=== PATIENT | male | born 1940 | race Caucasian/White ===

== ENCOUNTER 2017-08-02 09:03 | Outpatient (CLI) | payer MEDICARE, BC | END 2017-08-02 23:59 | disposition home or self-care (01) | LOC: DIABETIC 09:03 | PROVIDERS: ATTEND Specialist | DX: E11.65 Type 2 diabetes mellitus with hyperglycemia (principal) | CPT/HCPCS: G0108 ==

== ENCOUNTER 2019-02-21 21:07 | Inpatient (IN) | payer MEDICARE, BC ==
[~2019-02-21] VITALS: Ht 172.7 cm; Wt 87.2 kg
[2019-02-21] MEDS ORDERED: heparin 10,000 units/1 ML INJ IV ONE (21:30)
[2019-02-21] MEDS ORDERED: heparin 25,000 UNIT/250ml bag 250 ML IV SCH (21:30)
[2019-02-21] MEDS ORDERED: heparin 10,000 units/1 ML INJ IV PRN (21:30)
[2019-02-21 21:48] LABS: BASOPHILS # (AUTO) 0.1 X10'3 (0-0.2); BASOPHILS % (AUTO) 0.9 % (0-1); EOSINOPHILS # (AUTO) 0.2 X10'3 (0-0.9); EOSINOPHILS % (AUTO) 1.9 % (0-6); HEMATOCRIT 39.5 % (42.0-52.0); HEMOGLOBIN 13.1 g/dl (14.0-17.9); LYMPHOCYTES # (AUTO) 1.1 X10'3 (1.1-4.8); LYMPHOCYTES % (AUTO) 12.8 % (21-51); MEAN CORPUSCULAR HEMOGLOBIN 30.8 PG (27.0-31.0); MEAN CORPUSCULAR HGB CONC 33.2 g/dL (33.0-36.5); MEAN CORPUSCULAR VOLUME 92.7 FL (78-98); MEAN PLATELET VOLUME 9.1 FL (7.4-10.4); MONOCYTES # (AUTO) 0.5 X10'3 (0-0.9); NEUTROPHILS # (AUTO) 6.5 X10'3 (1.8-7.7); NEUTROPHILS % (AUTO) 78.4 % (42-75); PLATELET COUNT 152 X10'3 (140-440); RED BLOOD COUNT 4.26 X10'6 (4.70-6.10); RED CELL DISTRIBUTION WIDTH 14.6 % (11.5-14.5); WHITE BLOOD COUNT 8.3 X10'3 (4.5-11.0)
[2019-02-21 21:57] LABS: PARTIAL THROMBOPLASTIN TIME 35 SECONDS (22-32)
[2019-02-21 22:01] LABS: ALANINE AMINOTRANSFERASE 34 U/L (12-78); ALBUMIN 3.7 G/DL (3.4-5.0); ALBUMIN/GLOBULIN RATIO 1.1 (1.1-1.5); ALKALINE PHOSPHATASE 41 IU/L (46-116); ANION GAP 10 (8-16); ASPARTATE AMINO TRANSFERASE 44 U/L (10-37); BILIRUBIN,TOTAL 0.3 MG/DL (0.1-1.0); BLOOD UREA NITROGEN 32 MG/DL (7-18); BUN/CREATININE RATIO 21.2 (5.4-32.0); CALCIUM 8.7 MG/DL (8.5-10.1); CHLORIDE 108 MMOL/L (99-107); CREATININE 1.51 MG/DL (0.60-1.10); GLUCOSE 139 MG/DL (70-104); POTASSIUM 4.6 MMOL/L (3.5-5.1); SODIUM 141 MMOL/L (135-145); eGFR 45 ML/MIN
[2019-02-21] MEDS ORDERED: iohexol 350MG/ML 100ml bottle IV ONE (22:12)
--- NOTE | 2019-02-21 23:20 | NUR ---
Per JESENIA Ortega, pt NPO now.
[2019-02-21 23:40] LABS: CLARITY,URINE CLEAR (Clear); COLOR,URINE YELLOW (Yellow); GLUCOSE, URINE NEGATIVE (Neg); KETONES,URINE NEGATIVE (Neg); LEUKOCYTE ESTERASE ,URINE NEGATIVE (Neg); NITRITES, URINE NEGATIVE (Neg); OCCULT BLOOD,URINE NEGATIVE (Neg); PROTEIN,URINE NEGATIVE (Neg)
[2019-02-21 23:43] LABS: UA COLLECTION TYPE VOIDED
[2019-02-22] VITALS (26 sets, daily range): BP systolic 118–175; BP diastolic 45–73
[2019-02-22] MEDS ORDERED: LIDOcaine 1% (10mg/ml)w/preservative injection 20ml MDV ONE (00:03)
[2019-02-22] MEDS ORDERED: fentaNYL/PF 50MCG/1 ML 2ML syringe ONE (00:03)
[2019-02-22] MEDS ORDERED: midazolam 2 mg/2 ml injection ONE (00:03)
[2019-02-22] MEDS ORDERED: iohexol 350 MG/ML 50ML vial IV ONE (00:03)
[2019-02-22] MEDS ORDERED: iohexol 350MG/ML 100ml bottle IV ONE ×3 (00:03→01:03)
[2019-02-22] MEDS ORDERED: diphenhydrAMINE 50 mg/ml inj ONE (00:15)
[2019-02-22] MEDS ORDERED: dextrose ORAL solution 15 GM/59 ML bottle PO PRN ×2 (00:25)
[2019-02-22] MEDS ORDERED: magnesium Cl slow-release 64mg tablet PO PRN (00:25)
[2019-02-22] MEDS ORDERED: MESSAGE TO PHARMACY PO ONE (00:25)
[2019-02-22] MEDS ORDERED: ondansetron/PF 4mg/2ml inj IV PRN (00:25)
[2019-02-22] MEDS ORDERED: glucagon, human recombinant 1mg kit SUBCUT PRN (00:25)
[2019-02-22] MEDS ORDERED: potassium Cl 20 mEq SR tablet PO PRN ×2 (00:25)
[2019-02-22] MEDS ORDERED: acetaminophen 325mg tablet PO PRN ×3 (00:25→02:20)
[2019-02-22] MEDS ORDERED: dextrose 50%-water 50ml dispensing syringe IV PRN ×2 (00:25)
[2019-02-22] MEDS ORDERED: Neutra Phos packet PO PRN (00:25)
[2019-02-22] MEDS ORDERED: tirofiban 5mg in NS 100mL 100 ML IV ONE ×2 (00:28→01:48)
[2019-02-22] MEDS: heparin 25,000 UNIT/250ml bag 250 ML IV SCH (01:49)
[2019-02-22] MEDS ORDERED: heparin 10,000 units/1 ML INJ IV PRN (01:50)
--- NOTE | 2019-02-22 01:55 | NUR ---
Received patient in room ICU 2042 from dye lab technician. I have received report from dye lab technician RN and had the opportunity to ask questions and assume patient care.
[2019-02-22] MEDS: normal saline 1000ml 1,000 ML IV SCH ×2 (02:15→13:00)
[2019-02-22] MEDS ORDERED: HYDROcodone/acetaminophen 10/325mg tab PO PRN ×2 (02:20)
[2019-02-22] MEDS ORDERED: cyclobenzaprine 10mg tablet PO PRN (02:20)
[2019-02-22] MEDS ORDERED: magnesium hydroxide 30ml (MOM) UD suspension PO PRN (02:20)
[2019-02-22] MEDS ORDERED: OXAZEpam 15mg capsule PO PRN (02:20)
[2019-02-22] MEDS ORDERED: morphine 10mg/ml inj. IV PRN (02:20)
[2019-02-22] MEDS ORDERED: nitroGLYCERIN 0.4mg SUBLingual tab SL PRN (02:20)
[2019-02-22] MEDS ORDERED: proCHLORperazine 10 MG/2 ml inj IV PRN (02:20)
[2019-02-22] MEDS: nitroGLYCERIN-Tridil 50MG/D5W 250 ML IV SCH ×2 (02:20→09:25)
[2019-02-22] MEDS ORDERED: morphine 4 MG/ML inj SYRINge IV PRN (02:20)
[2019-02-22] MEDS: tirofiban 5mg in NS 100mL 100 ML IV SCH ×3 (02:43→13:43)
[2019-02-22 03:08] LABS: BASOPHILS # (AUTO) 0.1 X10'3 (0-0.2); BASOPHILS % (AUTO) 0.8 % (0-1); EOSINOPHILS # (AUTO) 0.1 X10'3 (0-0.9); EOSINOPHILS % (AUTO) 1.9 % (0-6); HEMATOCRIT 36.4 % (42.0-52.0); HEMOGLOBIN 12.1 g/dl (14.0-17.9); LYMPHOCYTES # (AUTO) 1.3 X10'3 (1.1-4.8); LYMPHOCYTES % (AUTO) 16.9 % (21-51); MEAN CORPUSCULAR HGB CONC 33.3 g/dL (33.0-36.5); MEAN PLATELET VOLUME 9.2 FL (7.4-10.4); MONOCYTES # (AUTO) 0.5 X10'3 (0-0.9); NEUTROPHILS # (AUTO) 5.7 X10'3 (1.8-7.7); NEUTROPHILS % (AUTO) 74.4 % (42-75); PLATELET COUNT 151 X10'3 (140-440); RED BLOOD COUNT 3.91 X10'6 (4.70-6.10); WHITE BLOOD COUNT 7.7 X10'3 (4.5-11.0)
[2019-02-22 03:28] LABS: ANION GAP 7 (8-16); BLOOD UREA NITROGEN 28 MG/DL (7-18); BUN/CREATININE RATIO 21.9 (5.4-32.0); CHLORIDE 108 MMOL/L (99-107); CREATININE 1.28 MG/DL (0.60-1.10); GLUCOSE 131 MG/DL (70-104); POTASSIUM 4.6 MMOL/L (3.5-5.1); SODIUM 139 MMOL/L (135-145); TOTAL CARBON DIOXIDE 23.8 MMOL/L (24-32)
[2019-02-22 03:29] LABS: ALANINE AMINOTRANSFERASE 35 U/L (12-78); ALBUMIN 3.3 G/DL (3.4-5.0); ALBUMIN/GLOBULIN RATIO 1.1 (1.1-1.5); ALKALINE PHOSPHATASE 37 IU/L (46-116); ASPARTATE AMINO TRANSFERASE 80 U/L (10-37); BILIRUBIN,TOTAL 0.3 MG/DL (0.1-1.0); CALCIUM 8.1 MG/DL (8.5-10.1); MAGNESIUM 1.9 MG/DL (1.5-2.4); PHOSPHORUS 3.2 MG/DL (2.3-4.5); TOTAL PROTEIN 6.3 G/DL (6.4-8.2); eGFR 54 ML/MIN
[2019-02-22] MEDS ORDERED: ROSU40TA PO (06:31)
[2019-02-22] MEDS ORDERED: EZET10TA21 NG (06:31)
[2019-02-22] MEDS ORDERED: FLAX100031 PO (06:31)
[2019-02-22] MEDS ORDERED: OLME5TAB3 PO (06:31)
[2019-02-22] MEDS ORDERED: COU2.5T PO (06:31)
[2019-02-22] MEDS ORDERED: FENO145T38 NG (06:31)
[2019-02-22] MEDS ORDERED: MULT-1085 PO (06:31)
[2019-02-22] MEDS ORDERED: CHLO25TA2 PO (06:31)
[2019-02-22] MEDS ORDERED: TERA5CAP4 PO (06:31)
[2019-02-22] MEDS ORDERED: CARV-50 NG (06:31)
[2019-02-22] MEDS ORDERED: ASPI81TA52 PO (06:31)
[2019-02-22] MEDS ORDERED: INSU10VI (06:31)
[2019-02-22] MEDS ORDERED: FINA5TAB11 NG (06:31)
[2019-02-22] MEDS ORDERED: METF500T PO (06:31)
[2019-02-22] MEDS ORDERED: OMEP40CA13 PO (06:31)
[2019-02-22] MEDS ORDERED: LUTE1CAP4 PO (06:31)
--- NOTE | 2019-02-22 06:45 | NUR ---
Problems reprioritized. Patient report given, questions answered & plan of care reviewed with CHIP Ware.
[2019-02-22] MEDS: K, MAG and/or Phos replacement - Verify level? MC SCH (07:01)
[2019-02-22] MEDS: pantoprazole 40mg Tablet.DR PO SCH (07:19)
[2019-02-22] MEDS: fenofibrate 145mg tablet PO SCH (07:20)
[2019-02-22] MEDS: ezetimibe 10mg tablet PO SCH (07:21)
[2019-02-22] MEDS: carVEDilol 12.5mg tablet PO SCH ×2 (07:22→20:55)
[2019-02-22] MEDS: losartan 50mg tablet PO SCH (07:22)
[2019-02-22] MEDS ORDERED: non-formulary drug (Omeprazole (Prilosec) 1 CAP) PO SCH (08:00)
[2019-02-22] MEDS ORDERED: docusate sod 100mg capsule PO SCH (08:00)
[2019-02-22] MEDS: docusate sod 100mg capsule PO SCH ×2 (08:04→20:00)
[2019-02-22] MEDS: finasteride 5mg tablet PO SCH (08:11)
[2019-02-22] MEDS: chlorthalidone 25mg tablet PO SCH (08:11)
--- NOTE | 2019-02-22 14:35 | NUR ---
Pt. started of NTG per SBP >160, Surinder made aware. Heparin gtt and agrastat continued. PTT monitored. Troponin elevated but down trending.
--- NOTE | 2019-02-22 18:30 | NUR ---
Patient in room ICU 2042. I have received report from CHIP Ware and had the opportunity to ask questions and assume patient care.
[2019-02-22] MEDS ORDERED: terazosin 5mg capsule PO SCH (21:00)
[2019-02-22] MEDS ORDERED: non-formulary drug (Lutein/Zeaxanthin (Lutein-Zeaxanthin 25-5 Mg Sfgl) 1 EACH) PO SCH (21:00)
[2019-02-22] MEDS ORDERED: warfarin 2.5mg tablet PO ONE (21:00)
[2019-02-22] MEDS ORDERED: insulin glargine (Lantus) pen - multi-dose SQ SCH (21:00)
[2019-02-22] MEDS ORDERED: warfarin 2.5mg tablet PO SCH (21:00)
[2019-02-22] MEDS ORDERED: FLAXSEED OIL 1400 MG PO SCH (21:00)
[2019-02-22] MEDS ORDERED: atorvastatin 20mg tablet PO SCH (21:00)
[2019-02-22] MEDS: insulin Lispro (HumaLOG) vial - multi-dose SQ SCH (21:03)
[2019-02-23] VITALS (18 sets, daily range): BP systolic 113–178; BP diastolic 47–71
[2019-02-23] MEDS: heparin 25,000 UNIT/250ml bag 250 ML IV SCH (00:35)
[2019-02-23] MEDS: tirofiban 5mg in NS 100mL 100 ML IV SCH (00:36)
[2019-02-23 04:57] LABS: ALANINE AMINOTRANSFERASE 47 U/L (12-78); ALBUMIN 3.2 G/DL (3.4-5.0); ALKALINE PHOSPHATASE 35 IU/L (46-116); ANION GAP 11 (8-16); ASPARTATE AMINO TRANSFERASE 87 U/L (10-37); BILIRUBIN,TOTAL 0.4 MG/DL (0.1-1.0); BLOOD UREA NITROGEN 23 MG/DL (7-18); CALCIUM 8.6 MG/DL (8.5-10.1); CHLORIDE 105 MMOL/L (99-107); CREATININE 1.21 MG/DL (0.60-1.10); GLUCOSE 149 MG/DL (70-104); MAGNESIUM 1.9 MG/DL (1.5-2.4); PHOSPHORUS 2.9 MG/DL (2.3-4.5); SODIUM 140 MMOL/L (135-145); TOTAL CARBON DIOXIDE 24.4 MMOL/L (24-32); TOTAL PROTEIN 6.3 G/DL (6.4-8.2); eGFR 58 ML/MIN
[2019-02-23 05:02] LABS: BASOPHILS # (AUTO) 0.1 X10'3 (0-0.2); BASOPHILS % (AUTO) 0.9 % (0-1); EOSINOPHILS # (AUTO) 0.2 X10'3 (0-0.9); HEMATOCRIT 34.2 % (42.0-52.0); HEMOGLOBIN 11.6 g/dl (14.0-17.9); LYMPHOCYTES # (AUTO) 1.2 X10'3 (1.1-4.8); LYMPHOCYTES % (AUTO) 18.6 % (21-51); MEAN CORPUSCULAR HEMOGLOBIN 31.3 PG (27.0-31.0); MEAN CORPUSCULAR VOLUME 92.2 FL (78-98); MEAN PLATELET VOLUME 8.9 FL (7.4-10.4); MONOCYTES # (AUTO) 0.4 X10'3 (0-0.9); MONOCYTES % (AUTO) 6.6 % (2-12); NEUTROPHILS # (AUTO) 4.5 X10'3 (1.8-7.7); NEUTROPHILS % (AUTO) 70.9 % (42-75); PLATELET COUNT 140 X10'3 (140-440); RED BLOOD COUNT 3.71 X10'6 (4.70-6.10); RED CELL DISTRIBUTION WIDTH 15.2 % (11.5-14.5); WHITE BLOOD COUNT 6.4 X10'3 (4.5-11.0)
[2019-02-23] MEDS: normal saline 1000ml 1,000 ML IV SCH (05:20)
--- NOTE | 2019-02-23 06:31 | NUR ---
Problems reprioritized. Patient report given, questions answered & plan of care reviewed with CHIP Ware.
[2019-02-23] MEDS: docusate sod 100mg capsule PO SCH (08:29)
[2019-02-23] MEDS: fenofibrate 145mg tablet PO SCH (08:29)
[2019-02-23] MEDS: pantoprazole 40mg Tablet.DR PO SCH (08:29)
[2019-02-23] MEDS: ezetimibe 10mg tablet PO SCH (08:29)
[2019-02-23] MEDS: chlorthalidone 25mg tablet PO SCH (08:29)
[2019-02-23] MEDS: carVEDilol 12.5mg tablet PO SCH (08:29)
[2019-02-23] MEDS: finasteride 5mg tablet PO SCH (08:29)
[2019-02-23] MEDS: losartan 50mg tablet PO SCH (08:29)
[2019-02-23] MEDS: K, MAG and/or Phos replacement - Verify level? MC SCH (08:30)
[2019-02-23] MEDS: insulin Lispro (HumaLOG) vial - multi-dose SQ SCH ×2 (10:13→13:41)
--- NOTE | 2019-02-23 10:22 | NUR ---
Dr. Jhaveri notified regarding change in pt status. Crackles mid chest on R auscultated after breakfast. Per. Dr. Jhaveri, no CXR, no sputum culture, and ordered IS.
[2019-02-23] MEDS ORDERED: furosemide 40mg/4ml inj IV ONE (10:25)
[2019-02-23] MEDS ORDERED: tirofiban 12.5mg in NS 250mL 250 ML IV SCH (10:45)
[2019-02-23] MEDS: nitroGLYCERIN-Tridil 50MG/D5W 250 ML IV SCH (16:31)
[2019-02-23 17:20] LABS: ABG BASE EXCESS -1.4 mmol/L (-2.0-3.0); ABG HCO3 22.4 mmol/L (22.0-26.0); ABG OXYGEN SATURATION 93.1 % (95-98); ABG PCO2 (T) 34.9 mmHg (35.0-48.0); ABG PH (T) 7.425 (7.350-7.450); ABG PO2 (T) 68.2 mmHg (83-108); FCOHb 0.3 % (0.5-1.5); FLOW 2 L/min; FO2Hb 92.8 % (94-100)
[2019-02-23 17:30] LABS: ALBUMIN 3.6 G/DL (3.4-5.0); ANION GAP 12 (8-16); BLOOD UREA NITROGEN 23 MG/DL (7-18); BUN/CREATININE RATIO 17.8 (5.4-32.0); CALCIUM 8.7 MG/DL (8.5-10.1); CHLORIDE 104 MMOL/L (99-107); CREATININE 1.29 MG/DL (0.60-1.10); GLUCOSE 144 MG/DL (70-104); POTASSIUM 3.9 MMOL/L (3.5-5.1); SODIUM 140 MMOL/L (135-145); TOTAL CARBON DIOXIDE 24.4 MMOL/L (24-32); eGFR 54 ML/MIN
--- NOTE | 2019-02-23 18:50 | NUR ---
Problems reprioritized. Patient report given to CHIP Escobar of CTICU at [facility], questions answered & plan of care reviewed. Pt. belongings including 5 boxers, 1 belt, 1 pant, 1 pair of glasses, 1 shirt and 1 eye patch given to emergency medical flight team along with 1 disk per [facility] radiology, 1 disk from [facility], 1 brown envelope, transfer packet, and medical chart. Copy of chart remains here. Heparin running at 500units. Nitroglycerin at 30mcg.
[2019-02-23] MEDS ORDERED: warfarin 2.5mg tablet PO SCH (21:00)
[2019-02-24] MEDS ORDERED: lactulose 20gm/30ml cup PO PRN (00:25)
== END 2019-02-23 18:40 | disposition short-term general hospital (02) | DRG 280 ==
LOC: ER 21:07 → ICU 2S 02-22 00:24
PROVIDERS: ADMIT Internal Medicine Critical Care Medicine; ATTEND Internal Medicine Critical Care Medicine
PROC: B32T1ZZ Computerized Tomography (CT Scan) of Left Pulmonary Artery using Low Osmolar Contrast (ICD-10-PCS; 2019-02-21)
PROC: B3201ZZ Computerized Tomography (CT Scan) of Thoracic Aorta using Low Osmolar Contrast (ICD-10-PCS; 2019-02-21)
PROC: B32S1ZZ Computerized Tomography (CT Scan) of Right Pulmonary Artery using Low Osmolar Contrast (ICD-10-PCS; 2019-02-21)
PROC: 4A023N7 Measurement of Cardiac Sampling and Pressure, Left Heart, Percutaneous Approach (ICD-10-PCS; principal; 2019-02-22)
PROC: B2111ZZ Fluoroscopy of Multiple Coronary Arteries using Low Osmolar Contrast (ICD-10-PCS; 2019-02-22)
PROC: B2181ZZ Fluoroscopy of Left Internal Mammary Bypass Graft using Low Osmolar Contrast (ICD-10-PCS; 2019-02-22)
PROC: B2171ZZ Fluoroscopy of Right Internal Mammary Bypass Graft using Low Osmolar Contrast (ICD-10-PCS; 2019-02-22)
PROC: B2131ZZ Fluoroscopy of Multiple Coronary Artery Bypass Grafts using Low Osmolar Contrast (ICD-10-PCS; 2019-02-22)
PROC: 02JA3ZZ Inspection of Heart, Percutaneous Approach (ICD-10-PCS; 2019-02-22)
DX: I21.4 Non-ST elevation (NSTEMI) myocardial infarction (principal); N17.0 Acute kidney failure with tubular necrosis; I25.119 Atherosclerotic heart disease of native coronary artery with unspecified angina pectoris; I44.7 Left bundle-branch block, unspecified; E11.65 Type 2 diabetes mellitus with hyperglycemia; E78.00 Pure hypercholesterolemia, unspecified; K21.9 Gastro-esophageal reflux disease without esophagitis; E11.22 Type 2 diabetes mellitus with diabetic chronic kidney disease; I12.9 Hypertensive chronic kidney disease with stage 1 through stage 4 chronic kidney disease, or unspecified chronic kidney disease; N18.9 Chronic kidney disease, unspecified; N40.0 Benign prostatic hyperplasia without lower urinary tract symptoms; Z79.01 Long term (current) use of anticoagulants; Z79.4 Long term (current) use of insulin; Z87.891 Personal history of nicotine dependence; Z95.1 Presence of aortocoronary bypass graft; Z95.2 Presence of prosthetic heart valve; Z79.899 Other long term (current) drug therapy; Z98.42 Cataract extraction status, left eye; Z98.41 Cataract extraction status, right eye
CPT/HCPCS: 36415; 36600; 71045; 71260; 80048; 80053; 81003; 82803; 82948; 83735; 84100; 84484; 85018; 85025; 85610; 85730; 87081; 93005; 96365; 96376; 99291; G0378; J1200; J1644; J1815; J1940; J2001; J2250; J3010; J3246; J3490; Q9967

== ENCOUNTER 2019-02-27 14:04 | Inpatient (IN) | payer MEDICARE, BC ==
[~2019-02-27] VITALS: Ht 172.7 cm; Wt 90.6 kg
[~2019-02-27 14:04] MED LIST: ASPI81TA52 PO; CARV-50 NG; CHLO25TA2 PO; COU2.5T PO; EZET10TA21 NG; FENO145T38 NG; FINA5TAB11 NG; FLAX100031 PO; INSU10VI; LUTE1CAP4 PO; METF500T PO; MULT-1085 PO; OLME5TAB3 PO; OMEP40CA13 PO; ROSU40TA PO; TERA5CAP4 PO
[2019-02-27] MEDS ORDERED: HYDROcodone/acetaminophen 5mg/325mg tablet PO PRN (21:50)
[2019-02-27] MEDS ORDERED: magnesium hydroxide 30ml (MOM) UD suspension PO PRN (21:50)
[2019-02-27] MEDS ORDERED: ondansetron/PF 4mg/2ml inj IV PRN (21:50)
[2019-02-27] MEDS ORDERED: morphine 2 MG/ML inj. syringe IV PRN ×2 (21:50)
[2019-02-27] MEDS ORDERED: mag hydrox/Alum hydrox/simeth 30ml oral suspension PO PRN (21:50)
[2019-02-27] MEDS ORDERED: acetaminophen 325mg tablet PO PRN ×2 (21:50)
[2019-02-27 22:00] VITALS: BP 156/62
[2019-02-27] MEDS ORDERED: DOCU50LI22 NG (22:09)
[2019-02-27] MEDS ORDERED: ATOR-2 NG (22:09)
[2019-02-27] MEDS ORDERED: CLOP75TA15 NG (22:09)
[2019-02-27] MEDS ORDERED: POLY17PO10 NG (22:09)
[2019-02-27] MEDS ORDERED: CHLO118M PO (22:09)
[2019-02-27] MEDS ORDERED: PANT40VI2 IV (22:09)
[2019-02-28 02:00] VITALS: BP 162/66
[2019-02-28] MEDS ORDERED: acetaminophen 325mg tablet CORPAK PRN ×2 (03:39)
[2019-02-28] MEDS ORDERED: magnesium hydroxide 30ml (MOM) UD suspension CORPAK PRN (03:41)
[2019-02-28] MEDS ORDERED: mag hydrox/Alum hydrox/simeth 30ml oral suspension CORPAK PRN (03:41)
[2019-02-28] MEDS ORDERED: INSU100V9 SQ (04:08)
--- NOTE | 2019-02-28 05:40 | NUR ---
In agreement with all charting and medication administration reviewed for this shift completed by Christy SAUNDERS.
[2019-02-28 06:00] VITALS: BP 163/67
[2019-02-28 06:02] LABS: ALBUMIN 2.9 G/DL (3.4-5.0); ANION GAP 11 (8-16); BLOOD UREA NITROGEN 43 MG/DL (7-18); BUN/CREATININE RATIO 35.8 (5.4-32.0); CHLORIDE 107 MMOL/L (99-107); GLUCOSE 179 MG/DL (70-104); POTASSIUM 3.8 MMOL/L (3.5-5.1); SODIUM 145 MMOL/L (135-145); TOTAL CARBON DIOXIDE 26.7 MMOL/L (24-32); eGFR 59 ML/MIN
[2019-02-28 06:03] LABS: BASOPHILS # (AUTO) 0.1 X10'3 (0-0.2); EOSINOPHILS # (AUTO) 0.3 X10'3 (0-0.9); EOSINOPHILS % (AUTO) 4.3 % (0-6); HEMOGLOBIN 11.5 g/dl (14.0-17.9); LYMPHOCYTES % (AUTO) 15.4 % (21-51); MEAN CORPUSCULAR HEMOGLOBIN 31.2 PG (27.0-31.0); MEAN CORPUSCULAR HGB CONC 33.8 g/dL (33.0-36.5); MEAN CORPUSCULAR VOLUME 92.2 FL (78-98); MEAN PLATELET VOLUME 8.8 FL (7.4-10.4); MONOCYTES # (AUTO) 0.6 X10'3 (0-0.9); MONOCYTES % (AUTO) 9.1 % (2-12); NEUTROPHILS # (AUTO) 4.4 X10'3 (1.8-7.7); NEUTROPHILS % (AUTO) 70.2 % (42-75); PLATELET COUNT 190 X10'3 (140-440); RED BLOOD COUNT 3.69 X10'6 (4.70-6.10); RED CELL DISTRIBUTION WIDTH 15.3 % (11.5-14.5); WHITE BLOOD COUNT 6.3 X10'3 (4.5-11.0)
--- NOTE | 2019-02-28 06:15 | NUR ---
Patient in room ORTHO 4021. I have received report from Marie/Christy RNs, and had the opportunity to ask questions and assume patient care.
--- NOTE | 2019-02-28 06:15 | NUR ---
Gave report to Yoana SAUNDERS with Marie SAUNDERS.
[2019-02-28] MEDS ORDERED: metFORMIN 500mg tablet CORPAK SCH (07:30)
[2019-02-28] MEDS ORDERED: INSU100V5 SQ (07:48)
[2019-02-28] MEDS ORDERED: MESSAGE TO PHARMACY PO ONE (07:50)
[2019-02-28] MEDS ORDERED: insulin Lispro (HumaLOG) vial - multi-dose SQ SCH (07:50)
[2019-02-28] MEDS ORDERED: dextrose ORAL solution 15 GM/59 ML bottle PO PRN ×2 (07:50)
[2019-02-28] MEDS ORDERED: dextrose 50%-water 50ml dispensing syringe IV PRN ×2 (07:50)
[2019-02-28] MEDS ORDERED: glucagon, human recombinant 1mg kit SUBCUT PRN (07:50)
[2019-02-28] MEDS ORDERED: pantoprazole 40 MG/NS 100ML add-vantage BAG IV SCH (08:00)
[2019-02-28] MEDS ORDERED: non-formulary drug (Omeprazole (Prilosec) 1 CAP) PO SCH (08:00)
[2019-02-28] MEDS ORDERED: enoxaparin 40mg/0.4ml syringe SUBCUT SCH (08:00)
[2019-02-28] MEDS: chlorthalidone 25mg tablet CORPAK SCH (08:10)
[2019-02-28] MEDS: carVEDilol 12.5mg tablet CORPAK SCH ×2 (08:10→17:42)
[2019-02-28] MEDS: fenofibrate 145mg tablet CORPAK SCH (08:11)
[2019-02-28] MEDS: ezetimibe 10mg tablet CORPAK SCH (08:11)
[2019-02-28] MEDS: clopidogrel 75mg tablet CORPAK SCH (08:11)
[2019-02-28] MEDS: losartan 50mg tablet CORPAK SCH (08:11)
[2019-02-28] MEDS: ESOMEPRAZOLE 40 MG VIAL IV SCH (08:12)
[2019-02-28] MEDS: aspirin 81mg tab.chew CORPAK SCH (08:13)
[2019-02-28 09:47] VITALS: BP 154/70
--- NOTE | 2019-02-28 10:01 | NUR ---
TF Consult: Pt admit w/ CVA from [place] sent to [place] for high risk redo CABG per MD note. Pt has severe dysphagia s/p stroke and receiving corpak feeds at [place]. PULMONARY FUNCTION TECHNICIAN advanced to pureed/NTL this AM; XIOMARA d/w who would like to continue nutrition support and monitor PO tolerance. LBM 02/27. TF recs below; will monitor for tolerance. Rec: 1. NGTF per MD via corpak using Glucerna 1.2 at 70ml/hr goal; to provide 1680ml fluid, 2016 kcals, 1361ml free water, and 101g protein. Initiate at 20ml/hr and advance 20ml Q8 to goal as tolerated. 2. water flush 200ml Q4 3. prealbumin Q /, daily wts 4. continue pureed/NTL/heart healthy/carb controlled diet per PULMONARY FUNCTION TECHNICIAN/ 5. Monitor for NG feeds adjustments pending PO tolerance Addendum: 02/28/19 at [address] Amended: Links added.
--- NOTE | 2019-02-28 11:15 | NUR ---
Dr Townsend is requesting SOC consult regarding anticoagulation on pt who is S/P acute stroke while at [facility] for eval of complex PCI. The procedure was not done secondary to new stroke finding. Pt transferred back to [facility] from [facility] on 02/27/2019. Will put consult in for 03/01/2019.
[2019-02-28 12:09] LABS: PREALBUMIN 17.7 MG/DL (19-36)
[2019-02-28 14:00] VITALS: BP 128/48
--- NOTE | 2019-02-28 15:47 | NUR ---
PAGER ID: [phone] MESSAGE: Dr. Cary Dennis, re: Mr. Noble in [id number], please call me thank you Yoana #[phone]
--- NOTE | 2019-02-28 17:24 | NUR ---
PAGER ID: [phone] MESSAGE: Sonny Townsend, re: Mr. Noble in [id number], can RT eval and treat? Pt has excessive secretions, please advise Thank you Yoana # [phone]
[2019-02-28 18:00] VITALS: BP 152/59
--- NOTE | 2019-02-28 18:00 | NUR ---
unable to use corpak connection from [facility]. does not fit our tubing. will have to replace corpak and get new placement amadeo montoya. pt eating dinner.
--- NOTE | 2019-02-28 18:09 | NUR ---
Problems reprioritized. Patient report given, questions answered & plan of care reviewed with Andreia SAUNDERS.
--- NOTE | 2019-02-28 19:15 | NUR ---
Started Tele neuro exam with SOC. 0 bedside RNChel completed exam with neurologist as I was called for level 1 stroke on tele floor.
--- NOTE | 2019-02-28 19:27 | NUR ---
requested calorie count for patient. mouna from dietary will place in for 03/01-03/03. corpak in place and pt eating.
[2019-02-28] MEDS ORDERED: heparin 25,000 UNIT/250ml bag 250 ML IV SCH (19:52)
--- NOTE | 2019-02-28 20:12 | NUR ---
I finished the neuro tele eval with patient and went over recommendations from the neurologist with him and his family,and answered their questions as best as I could. I will give them a stroke green packet and informed the family that they could talk to the Hospitalist tomorrow. Went over reasoning for anticoagulant heparin and Coumadin to be started on him because of the [facility] artificial valve.
[2019-02-28 20:39] LABS: PARTIAL THROMBOPLASTIN TIME 30 SECONDS (22-32)
--- NOTE | 2019-02-28 20:48 | NUR ---
able to start tube feeding at 20ml/hr with double jude valves. will continue to monitor for residual and leakage.
[2019-02-28] MEDS: terazosin 5mg capsule PO SCH (21:00)
[2019-02-28] MEDS ORDERED: non-formulary drug (Rosuvastatin Calcium* (Crestor*) 1 TAB) PO SCH (21:00)
[2019-02-28] MEDS ORDERED: warfarin 2.5mg tablet CORPAK ONE (21:00)
[2019-02-28] MEDS ORDERED: FLAXSEED OIL 1400 MG PO SCH (21:00)
[2019-02-28] MEDS ORDERED: non-formulary drug (Lutein/Zeaxanthin (Lutein-Zeaxanthin 25-5 Mg Sfgl) 1 EACH) PO SCH (21:00)
[2019-02-28] MEDS ORDERED: warfarin 2.5mg tablet CORPAK SCH (21:00)
[2019-02-28] MEDS ORDERED: warfarin 5mg tablet CORPAK ONE (21:00)
--- NOTE | 2019-02-28 21:00 | NUR ---
Spoke with bedside RNAndreia regarding tele neuro recommendations following tele neuro consult. Pt to start coumadin tonite and heparin drip. Will touch bases with daytime hospitalist tomorrow.
[2019-02-28] MEDS: atorvastatin 20mg tablet CORPAK SCH (21:13)
[2019-02-28] MEDS: insulin glargine (Lantus) pen - multi-dose SQ SCH (21:16)
[2019-02-28] MEDS ORDERED: albuterol 2.5 MG/3 ML nebule NEB PRN (21:20)
[2019-02-28 21:30] VITALS: BP 128/53
[2019-02-28] MEDS: heparin 25,000 UNIT/250ml bag 250 ML IV SCH (21:41)
[2019-03-01 03:45] LABS: BASOPHILS # (AUTO) 0.1 X10'3 (0-0.2); BASOPHILS % (AUTO) 1.4 % (0-1); EOSINOPHILS # (AUTO) 0.4 X10'3 (0-0.9); EOSINOPHILS % (AUTO) 4.6 % (0-6); HEMATOCRIT 32.8 % (42.0-52.0); LYMPHOCYTES # (AUTO) 1.5 X10'3 (1.1-4.8); LYMPHOCYTES % (AUTO) 18.9 % (21-51); MEAN CORPUSCULAR HGB CONC 33.6 g/dL (33.0-36.5); MEAN CORPUSCULAR VOLUME 92.5 FL (78-98); MEAN PLATELET VOLUME 8.7 FL (7.4-10.4); MONOCYTES # (AUTO) 0.7 X10'3 (0-0.9); MONOCYTES % (AUTO) 8.2 % (2-12); NEUTROPHILS # (AUTO) 5.4 X10'3 (1.8-7.7); NEUTROPHILS % (AUTO) 66.9 % (42-75); PLATELET COUNT 200 X10'3 (140-440); RED BLOOD COUNT 3.54 X10'6 (4.70-6.10); RED CELL DISTRIBUTION WIDTH 14.7 % (11.5-14.5); WHITE BLOOD COUNT 8.1 X10'3 (4.5-11.0)
[2019-03-01 03:50] LABS: ALBUMIN 2.9 G/DL (3.4-5.0); ANION GAP 7 (8-16); BLOOD UREA NITROGEN 38 MG/DL (7-18); BUN/CREATININE RATIO 32.5 (5.4-32.0); CALCIUM 9.1 MG/DL (8.5-10.1); CHLORIDE 103 MMOL/L (99-107); CREATININE 1.17 MG/DL (0.60-1.10); GLUCOSE 189 MG/DL (70-104); POTASSIUM 3.6 MMOL/L (3.5-5.1); SODIUM 139 MMOL/L (135-145); eGFR 60 ML/MIN
[2019-03-01 04:05] LABS: HEMOGLOBIN A1C 7.2 % (4.5-6.2)
[2019-03-01] MEDS: heparin 25,000 UNIT/250ml bag 250 ML IV SCH ×3 (04:25→16:19)
[2019-03-01 06:00] VITALS: BP 162/53
--- NOTE | 2019-03-01 06:00 | NUR ---
reported to days. noted pt resting, using suction appropriately. heparin infusing, tube feeding at 60ml/hr. noted will need to change accuchecks or stop tube feeding during day for pt to be encouraged to eat.
--- NOTE | 2019-03-01 06:10 | NUR ---
Patient in room ORTHO 4021. I have received report from Andreia SAUNDERS, and had the opportunity to ask questions and assume patient care.
[2019-03-01] MEDS: clopidogrel 75mg tablet CORPAK SCH (07:28)
[2019-03-01 08:35] VITALS: BP 136/57
[2019-03-01] MEDS: ezetimibe 10mg tablet CORPAK SCH (08:40)
[2019-03-01] MEDS: losartan 50mg tablet CORPAK SCH (08:40)
[2019-03-01] MEDS: ESOMEPRAZOLE 40 MG VIAL IV SCH (08:40)
[2019-03-01] MEDS: carVEDilol 12.5mg tablet CORPAK SCH ×2 (08:40→18:20)
[2019-03-01] MEDS: chlorthalidone 25mg tablet CORPAK SCH (08:40)
[2019-03-01] MEDS: fenofibrate 145mg tablet CORPAK SCH (08:40)
[2019-03-01] MEDS: aspirin 81mg tab.chew CORPAK SCH (08:41)
--- NOTE | 2019-03-01 09:19 | NUR ---
DM consult: Pt with A1c 7.2, will need DM ed with referral to outpatient DM class prior to discharge once pt alert and oriented. Calorie count: Received RN order for calorie count to run for three days starting breakfast 03/01 to dinner 03/03. Pt currently receiving Glucerna 1.2 via NG tube working towards goal rate with PO diet order of pureed heart healthy CHO controlled food and NTL. Pt documented with 50% PO intake at dinner last night. Will continue to follow. Addendum: 03/01/19 at [address] RD Amended: Links added.
[2019-03-01] MEDS: insulin regular, human vial - multi-dose SQ SCH ×3 (09:50→20:14)
[2019-03-01 10:00] VITALS: BP 143/63
--- NOTE | 2019-03-01 10:58 | NUR ---
Discussed anti coagulation with Dr Townsend. Dr Townsend will stop the asa and Plavix after he spoke with Dr Jordan. Pt will continue on Heparin drip per protocol and Coumadin therapy. Pt has bouts of coughing, coughing, coughing, is able to use oral suction, visually is appears to be saliva, however has audible rhonchi. Dr Townsend has ordered a cxr portable. Pt at high risk for asp pneumonia. Discussed with bedside RNYoana,preventative measures in place.
[2019-03-01 14:00] VITALS: BP 149/66
[2019-03-01 18:00] VITALS: BP 156/73
--- NOTE | 2019-03-01 18:26 | NUR ---
Problems reprioritized. Patient report given, questions answered & plan of care reviewed with Andreia SAUNDERS.
[2019-03-01] MEDS: terazosin 5mg capsule PO SCH (20:12)
[2019-03-01] MEDS: atorvastatin 20mg tablet CORPAK SCH (20:12)
[2019-03-01] MEDS: insulin glargine (Lantus) pen - multi-dose SQ SCH (20:16)
[2019-03-01] MEDS ORDERED: warfarin 5mg tablet CORPAK ONE (21:00)
[2019-03-01 22:00] VITALS: BP 141/63
--- NOTE | 2019-03-02 00:05 | NUR ---
noted lab result for PTT WNL no change needed on heparin rate
[2019-03-02] MEDS: insulin regular, human vial - multi-dose SQ SCH ×4 (02:22→20:17)
--- NOTE | 2019-03-02 04:17 | NUR ---
pt continues to have bloating and very smelly flatulence with every cough. sweating noted as well throughout the night. decreased rate to 40ml/hr on tube feeding for possible dumping syndrome or intolerance of tube feeding. will re-asses with postal sorting officer in am.
[2019-03-02 06:00] VITALS: BP 138/52
[2019-03-02 06:16] LABS: BASOPHILS # (AUTO) 0.1 X10'3 (0-0.2); BASOPHILS % (AUTO) 1.3 % (0-1); EOSINOPHILS # (AUTO) 0.3 X10'3 (0-0.9); EOSINOPHILS % (AUTO) 4.2 % (0-6); HEMOGLOBIN 11.8 g/dl (14.0-17.9); LYMPHOCYTES # (AUTO) 1.3 X10'3 (1.1-4.8); LYMPHOCYTES % (AUTO) 15.7 % (21-51); MEAN CORPUSCULAR HEMOGLOBIN 31.9 PG (27.0-31.0); MEAN CORPUSCULAR HGB CONC 34.7 g/dL (33.0-36.5); MEAN CORPUSCULAR VOLUME 91.8 FL (78-98); MONOCYTES # (AUTO) 0.7 X10'3 (0-0.9); MONOCYTES % (AUTO) 8.1 % (2-12); NEUTROPHILS # (AUTO) 5.7 X10'3 (1.8-7.7); NEUTROPHILS % (AUTO) 70.7 % (42-75); PLATELET COUNT 209 X10'3 (140-440); RED BLOOD COUNT 3.71 X10'6 (4.70-6.10); RED CELL DISTRIBUTION WIDTH 14.6 % (11.5-14.5); WHITE BLOOD COUNT 8.1 X10'3 (4.5-11.0)
[2019-03-02 06:25] LABS: ANION GAP 6 (8-16); BLOOD UREA NITROGEN 47 MG/DL (7-18); BUN/CREATININE RATIO 34.8 (5.4-32.0); CALCIUM 9.6 MG/DL (8.5-10.1); CHLORIDE 103 MMOL/L (99-107); CREATININE 1.35 MG/DL (0.60-1.10); GLUCOSE 194 MG/DL (70-104); POTASSIUM 3.5 MMOL/L (3.5-5.1); SODIUM 138 MMOL/L (135-145); TOTAL CARBON DIOXIDE 29.5 MMOL/L (24-32); eGFR 51 ML/MIN
--- NOTE | 2019-03-02 06:30 | NUR ---
reported to days. noted waiting for results of PTT. TF at 70 - encrouaged pt to eat today and possibly take off tube feeding during day to increase appetite. day RN will ask .
[2019-03-02] MEDS: losartan 50mg tablet CORPAK SCH (08:03)
[2019-03-02] MEDS: fenofibrate 145mg tablet CORPAK SCH (08:03)
[2019-03-02] MEDS: ezetimibe 10mg tablet CORPAK SCH (08:03)
[2019-03-02] MEDS: chlorthalidone 25mg tablet CORPAK SCH (08:03)
[2019-03-02] MEDS: carVEDilol 12.5mg tablet CORPAK SCH ×2 (08:04→19:43)
[2019-03-02] MEDS: ESOMEPRAZOLE 40 MG VIAL IV SCH (08:04)
[2019-03-02 10:00] VITALS: BP 116/49
--- NOTE | 2019-03-02 10:30 | NUR ---
Short visit. Close family friend at bedside. Pt in bed. Looks fatigued. Up during the night and walked in hallway. Feels "hot". Room is quite warm. Pt feels he is getting stronger, however, affect remains flat.
[2019-03-02] MEDS: heparin 25,000 UNIT/250ml bag 250 ML IV SCH (13:23)
[2019-03-02] MEDS: simethicone 80mg chew tab PO SCH ×2 (13:27→19:53)
--- NOTE | 2019-03-02 13:35 | NUR ---
DM consult: Pt with A1c 7.2, will need DM ed with referral to outpatient DM class prior to discharge once pt able, documented as sleepy. Calorie count: Day two of calorie count. Patient ate 0% of breakfast and lunch yesterday, very poor appetite. Unable to eat breakfast this morning. Tube feeding is now at goal of 70 ml/hr. Received 1136 ml of tube feeding since it began on 02/28, receiving total of 1363 kcals from TF so far, GRV are WNL. Calorie count will run from breakfast 03/01 to dinner 03/03. Has PO diet order of pureed heart healthy CHO controlled food and NTL per SERVICES HOST recs. Recommend to continue tube feeding until patient can eat at least 65% of meals. Spoke with RN over phone, reports that patient's tube feeding will be turned down at 2:00 pm to 35 ml to help with patient's appetite and PO intake. Discussed that 70 ml/hr provides a few tablespoons hourly of tube feeding, it may be likely that the patient still has very poor PO intake with tube feeding cut in half. RN reports that it is suspected that patient has dumping syndrome. Pt has no history of GI surgery, Glucerna 1.2 comprised of complex and simple CHO with insoluble and soluble fibers. Pt with bloating, this may be d/t the short chain fructooligosaccharides, alternatively patient is also receiving several medications that have side effects of GI distress on diarrhea: Losartan Potassium, Ezetimibe, Chlorthalidone, Coreg. Recommend to continue Glucerna at goal of 70 ml/hr if patient is unable to eat >65% with the tube feeding off. RD requested calorie count sheets to be faxed from RN for calorie count report. Will continue to follow. Rec: 1. NGTF per MD via corpak using Glucerna 1.2 at 70ml/hr goal; to provide 1680ml fluid, 2016 kcals, 1361ml free water, and 101g protein. Initiate at 20ml/hr and advance 20ml Q8 to goal as tolerated. 2. water flush 200ml Q4 3. prealbumin Q M/Th, daily wts 4. continue pureed/NTL/heart healthy/carb controlled diet per SERVICES HOST/MD 5. Monitor for NG feeds adjustments pending PO tolerance Addendum: 03/02/19 at [address] Amended: Links added.
[2019-03-02 18:00] VITALS: BP 135/53
--- NOTE | 2019-03-02 18:46 | NUR ---
Problems reprioritized. Patient report given, questions answered & plan of care reviewed with Marie SAUNDERS.
[2019-03-02] MEDS: terazosin 5mg capsule PO SCH (19:43)
[2019-03-02] MEDS: atorvastatin 20mg tablet CORPAK SCH (19:44)
--- NOTE | 2019-03-02 20:00 | NUR ---
PTT result came back as therapeautic - no changes made to dose.
[2019-03-02] MEDS: insulin glargine (Lantus) pen - multi-dose SQ SCH (20:19)
[2019-03-02] MEDS ORDERED: warfarin 7.5mg tablet PO ONE (21:00)
[2019-03-02 22:00] VITALS: BP 125/50
[2019-03-03] MEDS: insulin regular, human vial - multi-dose SQ SCH ×3 (01:50→20:21)
--- NOTE | 2019-03-03 02:00 | NUR ---
PTT result came back as therapeautic - no changes made to dose.
[2019-03-03 06:00] VITALS: BP 139/59
--- NOTE | 2019-03-03 06:28 | NUR ---
Problems reprioritized. Patient report given, questions answered & plan of care reviewed with CHIP Correia.
[2019-03-03 07:27] LABS: BASOPHILS # (AUTO) 0.1 X10'3 (0-0.2); BASOPHILS % (AUTO) 1.3 % (0-1); EOSINOPHILS # (AUTO) 0.3 X10'3 (0-0.9); EOSINOPHILS % (AUTO) 3.8 % (0-6); HEMATOCRIT 33.5 % (42.0-52.0); HEMOGLOBIN 11.5 g/dl (14.0-17.9); LYMPHOCYTES # (AUTO) 1.2 X10'3 (1.1-4.8); LYMPHOCYTES % (AUTO) 17.5 % (21-51); MEAN CORPUSCULAR HEMOGLOBIN 31.4 PG (27.0-31.0); MEAN CORPUSCULAR HGB CONC 34.3 g/dL (33.0-36.5); MEAN CORPUSCULAR VOLUME 91.5 FL (78-98); MEAN PLATELET VOLUME 8.4 FL (7.4-10.4); MONOCYTES # (AUTO) 0.6 X10'3 (0-0.9); MONOCYTES % (AUTO) 9.1 % (2-12); NEUTROPHILS # (AUTO) 4.5 X10'3 (1.8-7.7); NEUTROPHILS % (AUTO) 68.3 % (42-75); PLATELET COUNT 211 X10'3 (140-440); RED BLOOD COUNT 3.66 X10'6 (4.70-6.10); RED CELL DISTRIBUTION WIDTH 14.6 % (11.5-14.5); WHITE BLOOD COUNT 6.7 X10'3 (4.5-11.0)
[2019-03-03 07:41] LABS: ALBUMIN 2.8 G/DL (3.4-5.0); ANION GAP 5 (8-16); BLOOD UREA NITROGEN 50 MG/DL (7-18); BUN/CREATININE RATIO 35.7 (5.4-32.0); CALCIUM 9.2 MG/DL (8.5-10.1); CHLORIDE 103 MMOL/L (99-107); GLUCOSE 180 MG/DL (70-104); POTASSIUM 3.6 MMOL/L (3.5-5.1); SODIUM 139 MMOL/L (135-145); TOTAL CARBON DIOXIDE 31.1 MMOL/L (24-32); eGFR 49 ML/MIN
[2019-03-03] MEDS: heparin 25,000 UNIT/250ml bag 250 ML IV SCH (08:14)
[2019-03-03] MEDS: Potassium Cl inj 20 MEQ in normal saline 1000ml 990 ML IV SCH ×2 (08:40→20:10)
[2019-03-03] MEDS: losartan 50mg tablet CORPAK SCH (08:57)
[2019-03-03] MEDS: ezetimibe 10mg tablet CORPAK SCH (08:57)
[2019-03-03] MEDS: chlorthalidone 25mg tablet CORPAK SCH (08:57)
[2019-03-03] MEDS: fenofibrate 145mg tablet CORPAK SCH (08:57)
[2019-03-03] MEDS: ESOMEPRAZOLE 40 MG VIAL IV SCH (08:58)
[2019-03-03] MEDS: simethicone 80mg chew tab PO SCH ×3 (08:59→20:25)
[2019-03-03] MEDS: carVEDilol 12.5mg tablet CORPAK SCH ×2 (09:00→17:22)
[2019-03-03 10:00] VITALS: BP 108/52
--- NOTE | 2019-03-03 10:40 | NUR ---
Patient in room ORTHO 4021. I have received report from Mechelle SAUNDERS and had the opportunity to ask questions and assume patient care.
--- NOTE | 2019-03-03 13:40 | NUR ---
Reassessment: Day 3 calorie count. Pt TF at goal and tolerating 0 GRV noted on EMR. Pt had period of abdominal distention and TF was briefly decreased to 40ml back up to goal at 8AM today. LBM 03/02. RD d/w RN for Mg/Phos levels per MD approval given on nutrition support. Protein/kcals received as indicated by recs below refusing all PO meals today per RN. Rec: 1. NGTF per MD via corpak using Glucerna 1.2 at 70ml/hr goal; to provide 1680ml fluid, 2016 kcals, 1361ml free water, and 101g protein. Initiate at 20ml/hr and advance 20ml Q8 to goal as tolerated. 2. water flush 200ml Q4 3. prealbumin Q /, daily wts 4. continue pureed/NTL/heart healthy/carb controlled diet per CENTER ADMINISTRATOR/MD 5. routine bowel care 6. Mg/Phos per MD approval on EN Addendum: 03/03/19 at [address] Amended: Links added.
[2019-03-03 18:00] VITALS: BP 124/59
--- NOTE | 2019-03-03 18:28 | NUR ---
Problems reprioritized. Patient report given, questions answered & plan of care reviewed with Kenzie SAUNDERS.
[2019-03-03] MEDS: atorvastatin 20mg tablet CORPAK SCH (20:23)
[2019-03-03] MEDS: terazosin 5mg capsule PO SCH (20:24)
[2019-03-03] MEDS ORDERED: warfarin 5mg tablet PO ONE (21:00)
--- NOTE | 2019-03-03 21:12 | NUR ---
report rec'd from soledad Henry. Pt has had an infiltrated PIV all day and multiple RNs have tried to place new PIV with no success. Therefore, Heparin is shut off for X number of hours. NOC RN was able to place new PIV in RUE so we were able to continue therapy. Latest PTT is 44 which is one point below therapeutic, so we will continue with same rate until new PTT. RN has discussed with charge nurse, agrees.
[2019-03-03 22:00] VITALS: BP 120/53
[2019-03-03] MEDS: insulin glargine (Lantus) pen - multi-dose SQ SCH (23:31)
[2019-03-04 02:22] LABS: BASOPHILS # (AUTO) 0.1 X10'3 (0-0.2); EOSINOPHILS # (AUTO) 0.3 X10'3 (0-0.9); EOSINOPHILS % (AUTO) 3.5 % (0-6); HEMATOCRIT 36.6 % (42.0-52.0); HEMOGLOBIN 12.4 g/dl (14.0-17.9); LYMPHOCYTES # (AUTO) 1.6 X10'3 (1.1-4.8); LYMPHOCYTES % (AUTO) 17.7 % (21-51); MEAN CORPUSCULAR HEMOGLOBIN 30.9 PG (27.0-31.0); MEAN CORPUSCULAR HGB CONC 33.8 g/dL (33.0-36.5); MEAN CORPUSCULAR VOLUME 91.5 FL (78-98); MONOCYTES # (AUTO) 0.5 X10'3 (0-0.9); MONOCYTES % (AUTO) 5.9 % (2-12); NEUTROPHILS # (AUTO) 6.4 X10'3 (1.8-7.7); NEUTROPHILS % (AUTO) 71.9 % (42-75); PLATELET COUNT 240 X10'3 (140-440); RED CELL DISTRIBUTION WIDTH 15.3 % (11.5-14.5); WHITE BLOOD COUNT 8.9 X10'3 (4.5-11.0)
[2019-03-04 02:30] LABS: ANION GAP 7 (8-16); BLOOD UREA NITROGEN 49 MG/DL (7-18); CALCIUM 9.3 MG/DL (8.5-10.1); CHLORIDE 103 MMOL/L (99-107); CREATININE 1.44 MG/DL (0.60-1.10); GLUCOSE 152 MG/DL (70-104); POTASSIUM 3.9 MMOL/L (3.5-5.1); PREALBUMIN 20.8 MG/DL (19-36); SODIUM 139 MMOL/L (135-145); TOTAL CARBON DIOXIDE 28.8 MMOL/L (24-32); eGFR 47 ML/MIN
[2019-03-04] MEDS: insulin regular, human vial - multi-dose SQ SCH ×4 (02:54→20:08)
[2019-03-04] MEDS: heparin 25,000 UNIT/250ml bag 250 ML IV SCH (02:56)
--- NOTE | 2019-03-04 03:55 | NUR ---
Latest PTT was drawn and would not provide any values. Heparin was again turned off, after 5-10mins, the second draw was taken to lab for testing. we await new lab values if any.
--- NOTE | 2019-03-04 04:59 | NUR ---
Lab called again with PTT unable to register values, Heparin is stopped for 120mins. will redraw. Addendum: 03/04/19 at 0518 by Claudia Bianchi RN Lab called again with redraw PTT unable to register values, Heparin is stopped for 120mins since 329. will redraw at 0530. then follow protocol.
--- NOTE | 2019-03-04 06:01 | NUR ---
Report given to soledad Dean.
[2019-03-04 06:57] VITALS: BP 102/59
[2019-03-04] MEDS: carVEDilol 12.5mg tablet CORPAK SCH ×2 (07:30→18:03)
[2019-03-04] MEDS: losartan 50mg tablet CORPAK SCH (07:47)
[2019-03-04] MEDS: chlorthalidone 25mg tablet CORPAK SCH (07:47)
[2019-03-04] MEDS: ezetimibe 10mg tablet CORPAK SCH (08:02)
[2019-03-04] MEDS: fenofibrate 145mg tablet CORPAK SCH (08:02)
[2019-03-04] MEDS: ESOMEPRAZOLE 40 MG VIAL IV SCH (08:02)
[2019-03-04] MEDS: simethicone 80mg chew tab PO SCH ×3 (08:02→20:09)
[2019-03-04] MEDS: Potassium Cl inj 20 MEQ in normal saline 1000ml 990 ML IV SCH ×2 (08:16→23:07)
[2019-03-04 10:13] VITALS: BP 142/74
--- NOTE | 2019-03-04 12:45 | NUR ---
Pt sitting in chair at bedside. Left facial weakness persists. Continues to have coughing episodes, uses yankauer as needed. Not eating. After discussing diet, pt says he cannot hold utensils. His poor appetite isn't all due to " not wanting to eat." Pt needs help and adaptable silverware. This has been ordered through kitchen. Pt will be assisted with meals by staff as needed.
--- NOTE | 2019-03-04 14:12 | NUR ---
F/u: Pt TF has been decreased to 35ml/hr per MD request since pt PO has improved to at least 50% breakfast and lunch today. Per CUSTOM FURRIER pt has trouble gripping spoon to eat so is now receiving adaptive wear w/ meals and PO has improved. Per RN; TF to be d/c if sustained 50% PO meals per MD. Will monitor for PO dinner and further nutrition support needs. Addendum: 03/04/19 at [address] Amended: Links added.
[2019-03-04 18:00] VITALS: BP 127/58
[2019-03-04] MEDS: terazosin 5mg capsule PO SCH (20:09)
[2019-03-04] MEDS: atorvastatin 20mg tablet CORPAK SCH (20:20)
[2019-03-04] MEDS: insulin glargine (Lantus) pen - multi-dose SQ SCH (21:28)
[2019-03-04 22:00] VITALS: BP 144/56
[2019-03-05] MEDS: insulin regular, human vial - multi-dose SQ SCH ×3 (02:41→13:47)
[2019-03-05 06:00] VITALS: BP 116/57
[2019-03-05 06:10] LABS: BASOPHILS # (AUTO) 0.1 X10'3 (0-0.2); BASOPHILS % (AUTO) 0.7 % (0-1); EOSINOPHILS # (AUTO) 0.2 X10'3 (0-0.9); EOSINOPHILS % (AUTO) 2.3 % (0-6); HEMATOCRIT 34.9 % (42.0-52.0); HEMOGLOBIN 11.8 g/dl (14.0-17.9); LYMPHOCYTES % (AUTO) 10.4 % (21-51); MEAN CORPUSCULAR HEMOGLOBIN 31.3 PG (27.0-31.0); MEAN CORPUSCULAR HGB CONC 33.7 g/dL (33.0-36.5); MEAN CORPUSCULAR VOLUME 92.8 FL (78-98); MEAN PLATELET VOLUME 9.3 FL (7.4-10.4); MONOCYTES # (AUTO) 0.8 X10'3 (0-0.9); NEUTROPHILS # (AUTO) 7.4 X10'3 (1.8-7.7); NEUTROPHILS % (AUTO) 78.6 % (42-75); PLATELET COUNT 240 X10'3 (140-440); RED BLOOD COUNT 3.76 X10'6 (4.70-6.10); WHITE BLOOD COUNT 9.5 X10'3 (4.5-11.0)
--- NOTE | 2019-03-05 06:17 | NUR ---
Report given to soledad Guillory.
--- NOTE | 2019-03-05 06:30 | NUR ---
received report from soledad spence
[2019-03-05] MEDS: simethicone 80mg chew tab PO SCH ×3 (08:15→20:39)
[2019-03-05] MEDS: ezetimibe 10mg tablet CORPAK SCH (08:17)
[2019-03-05] MEDS: fenofibrate 145mg tablet CORPAK SCH (08:18)
[2019-03-05] MEDS: losartan 50mg tablet CORPAK SCH (08:20)
[2019-03-05] MEDS: chlorthalidone 25mg tablet CORPAK SCH (08:20)
[2019-03-05] MEDS: carVEDilol 12.5mg tablet CORPAK SCH ×2 (08:21→17:25)
[2019-03-05] MEDS: ESOMEPRAZOLE 40 MG VIAL IV SCH (08:23)
[2019-03-05 10:00] VITALS: BP 134/51
[2019-03-05] MEDS: Potassium Cl inj 20 MEQ in normal saline 1000ml 990 ML IV SCH ×2 (11:44→23:29)
[2019-03-05 14:00] VITALS: BP 133/47
[2019-03-05 18:00] VITALS: BP 142/55
--- NOTE | 2019-03-05 18:31 | NUR ---
gave report to soledad hawthorne
--- NOTE | 2019-03-05 18:33 | NUR ---
Patient in room ORTHO 4021. I have received report from CHIP Guillory and had the opportunity to ask questions and assume patient care. Addendum: 03/05/19 at 1834 by Madisyn Wang RN Amended: Links added.
--- NOTE | 2019-03-05 19:09 | NUR ---
Patient in room ORTHO 4021. I have received report from CHIP Correia and had the opportunity to ask questions and assume patient care. Addendum: 03/05/19 at 1910 by Madisyn Wang RN Amended: Links added.
[2019-03-05] MEDS: insulin glargine (Lantus) pen - multi-dose SQ SCH (20:38)
[2019-03-05] MEDS: terazosin 5mg capsule PO SCH (20:39)
[2019-03-05] MEDS: atorvastatin 20mg tablet CORPAK SCH (20:39)
[2019-03-05 22:00] VITALS: BP 133/52
[2019-03-06] MEDS: insulin regular, human vial - multi-dose SQ SCH ×2 (01:49→08:36)
[2019-03-06 06:00] VITALS: BP 89/50
[2019-03-06 06:01] LABS: BASOPHILS # (AUTO) 0.1 X10'3 (0-0.2); BASOPHILS % (AUTO) 0.8 % (0-1); EOSINOPHILS # (AUTO) 0.3 X10'3 (0-0.9); EOSINOPHILS % (AUTO) 3.3 % (0-6); HEMATOCRIT 34.5 % (42.0-52.0); HEMOGLOBIN 11.7 g/dl (14.0-17.9); LYMPHOCYTES # (AUTO) 1.1 X10'3 (1.1-4.8); LYMPHOCYTES % (AUTO) 13.2 % (21-51); MEAN CORPUSCULAR HEMOGLOBIN 31.3 PG (27.0-31.0); MEAN CORPUSCULAR HGB CONC 34.1 g/dL (33.0-36.5); MEAN CORPUSCULAR VOLUME 91.9 FL (78-98); MEAN PLATELET VOLUME 9.1 FL (7.4-10.4); MONOCYTES # (AUTO) 0.5 X10'3 (0-0.9); MONOCYTES % (AUTO) 6.3 % (2-12); NEUTROPHILS # (AUTO) 6.2 X10'3 (1.8-7.7); NEUTROPHILS % (AUTO) 76.4 % (42-75); PLATELET COUNT 244 X10'3 (140-440); RED BLOOD COUNT 3.75 X10'6 (4.70-6.10); RED CELL DISTRIBUTION WIDTH 15.3 % (11.5-14.5); WHITE BLOOD COUNT 8.2 X10'3 (4.5-11.0)
[2019-03-06 06:04] LABS: ALANINE AMINOTRANSFERASE 32 U/L (12-78); ALBUMIN 2.8 G/DL (3.4-5.0); ALBUMIN/GLOBULIN RATIO 0.7 (1.1-1.5); ALKALINE PHOSPHATASE 56 IU/L (46-116); ANION GAP 9 (8-16); ASPARTATE AMINO TRANSFERASE 16 U/L (10-37); BILIRUBIN,TOTAL 0.5 MG/DL (0.1-1.0); BLOOD UREA NITROGEN 29 MG/DL (7-18); BUN/CREATININE RATIO 25.4 (5.4-32.0); CALCIUM 8.6 MG/DL (8.5-10.1); CHLORIDE 104 MMOL/L (99-107); CREATININE 1.14 MG/DL (0.60-1.10); GLUCOSE 154 MG/DL (70-104); POTASSIUM 4.2 MMOL/L (3.5-5.1); SODIUM 138 MMOL/L (135-145); TOTAL CARBON DIOXIDE 24.6 MMOL/L (24-32); TOTAL PROTEIN 6.9 G/DL (6.4-8.2); eGFR 62 ML/MIN
--- NOTE | 2019-03-06 06:19 | NUR ---
Problems reprioritized. Patient report given, questions answered & plan of care reviewed with CHIP Sahni. Addendum: 03/06/19 at 0619 by Madisyn Wang RN Amended: Links added.
[2019-03-06] MEDS: ESOMEPRAZOLE 40 MG VIAL IV SCH (08:29)
[2019-03-06] MEDS: simethicone 80mg chew tab PO SCH (08:30)
[2019-03-06] MEDS: fenofibrate 145mg tablet CORPAK SCH (08:30)
[2019-03-06] MEDS: ezetimibe 10mg tablet CORPAK SCH (08:30)
[2019-03-06 08:55] VITALS: BP 103/55
[2019-03-06] MEDS: Potassium Cl inj 20 MEQ in normal saline 1000ml 990 ML IV SCH (08:57)
[2019-03-06 10:00] VITALS: BP 120/47
[2019-03-06] MEDS ORDERED: ATOR20TA66 CORPAK (11:26)
[2019-03-06] MEDS ORDERED: LOSA50TA64 CORPAK (11:26)
== END 2019-03-06 13:05 | DRG 64 ==
LOC: ORTHO 4S 21:40
PROVIDERS: ADMIT Internal Medicine; ATTEND Family Medicine
DX: I63.511 Cerebral infarction due to unspecified occlusion or stenosis of right middle cerebral artery (principal); I21.4 Non-ST elevation (NSTEMI) myocardial infarction; N17.0 Acute kidney failure with tubular necrosis; G81.94 Hemiplegia, unspecified affecting left nondominant side; R47.01 Aphasia; E11.22 Type 2 diabetes mellitus with diabetic chronic kidney disease; E78.5 Hyperlipidemia, unspecified; I25.10 Atherosclerotic heart disease of native coronary artery without angina pectoris; R06.03 Acute respiratory distress; I65.23 Occlusion and stenosis of bilateral carotid arteries; N18.3 Chronic kidney disease, stage 3 (moderate); R13.10 Dysphagia, unspecified; R47.9 Unspecified speech disturbances; I48.0 Paroxysmal atrial fibrillation; E86.0 Dehydration; I12.9 Hypertensive chronic kidney disease with stage 1 through stage 4 chronic kidney disease, or unspecified chronic kidney disease; N40.0 Benign prostatic hyperplasia without lower urinary tract symptoms; Z79.02 Long term (current) use of antithrombotics/antiplatelets; Z86.73 Personal history of transient ischemic attack (TIA), and cerebral infarction without residual deficits; Z79.899 Other long term (current) drug therapy; Z95.2 Presence of prosthetic heart valve; Z79.01 Long term (current) use of anticoagulants; I25.2 Old myocardial infarction; Z79.4 Long term (current) use of insulin; Z87.891 Personal history of nicotine dependence; Z95.1 Presence of aortocoronary bypass graft; Z79.84 Long term (current) use of oral hypoglycemic drugs
CPT/HCPCS: 36415; 70450; 70551; 71045; 74018; 80048; 80053; 82948; 83036; 84134; 85025; 85610; 85730; 87081; 92508; 92616; 93880; 94640; 94760; 97110; 97116; 97161; 97530; G0378; J1644; J1650; J1815; J3480; J7030